=== PATIENT | male | born 2000 | race Caucasian/White ===

== ENCOUNTER 2021-12-10 12:46 | Day surgery (SDC) | payer OTHER ==
[~2021-12-10] VITALS: Ht 185.4 cm; Wt 93.0 kg
[2021-12-10] MEDS ORDERED: LR 1,000 ML IV SCH ×2 (13:25→17:35)
[2021-12-10] MEDS ORDERED: EPINEPHrine INJ 1 MG/ML 1ML AMP PN ONE (14:10)
[2021-12-10] MEDS ORDERED: dexameTHASONE 10MG/1ML VIAL PRES.FREE (J1100 PER 1MG) PN ONE (14:10)
[2021-12-10] MEDS ORDERED: LIDOCAINE 1% SDV 5ML VIAL PN ONE (14:10)
[2021-12-10] MEDS ORDERED: ROPIvacaine 0.5% 30ML INJECTION (J2795 PER 1MG) PN ONE (14:10)
[2021-12-10] MEDS ORDERED: fentaNYL 100 MCG/2 ML INJECTION IV PRN ×2 (14:10→17:35)
[2021-12-10] MEDS: MIDAZOLAM INJ 2MG/2ML VIAL (J2250 PER 1MG) IV PRN ×2 (14:20→14:24)
[2021-12-10] MEDS ORDERED: ONDANSETRON 4MG 2ML VIAL As Ordered ONE (14:43)
[2021-12-10] MEDS ORDERED: dexameTHASONE 4 MG/ML 1ML VIAL (J1100 PER 1MG) As Ordered ONE (14:43)
[2021-12-10] MEDS ORDERED: fentaNYL 100 MCG/2 ML INJECTION As Ordered ONE (14:43)
[2021-12-10] MEDS ORDERED: KETOROLAC 60MG 2ML VIAL As Ordered ONE (14:43)
[2021-12-10] MEDS ORDERED: propofoL 200 MG/20 ML VIAL As Ordered ONE (14:43)
[2021-12-10] MEDS ORDERED: EPINEPHrine 1MG/ML INJ 30ML MD-VIAL As Ordered ONE (15:06)
[2021-12-10] MEDS ORDERED: TRANEXAMIC ACID 100 MG/ML 10ML VIAL As Ordered ONE (15:29)
[2021-12-10] MEDS ORDERED: ceFAZolin 1GM VIAL (J0690 PER 500MG) As Ordered ONE (15:30)
[2021-12-10] MEDS ORDERED: METOCLOPRAMIDE INJ 10MG/2ML VIAL (J2765 PER 1) IV PRN (17:35)
[2021-12-10] MEDS ORDERED: oxyCODONE 5MG TAB PO PRN (17:35)
[2021-12-10] MEDS ORDERED: ONDANSETRON 4MG 2ML VIAL IV PRN (17:35)
[2021-12-10] MEDS ORDERED: MORPHINE 2 MG/ML 1ML VIAL IV PRN (17:35)
[2021-12-10 18:08] VITALS: BP 128/67
== END 2021-12-10 18:35 | disposition home or self-care (01) ==
LOC: M SDC 12:46
PROVIDERS: ATTEND Orthopaedic Surgery
DX: S83.212A Bucket-handle tear of medial meniscus, current injury, left knee, initial encounter (principal); X50.1XXA Overexertion from prolonged static or awkward postures, initial encounter; Z88.2 Allergy status to sulfonamides
CPT/HCPCS: 29882; C1713; J0171; J0690; J1100; J1885; J2250; J2405; J3010

== ENCOUNTER 2022-01-11 12:15 | Emergency (ER) | payer OTHER ==
[~2022-01-11] VITALS: Ht 185.4 cm; Wt 96.9 kg
[2022-01-11 12:15] VITALS: BP 143/85
[2022-01-11] MEDS ORDERED: NEUR100C PO (12:35)
[2022-01-11 15:26] LABS: BASO # 0.1 10^3/uL (0.0-0.2); BASO % 0.7 % (0.0-1.0); EOS # 0.4 10^3/uL (0.0-0.5); EOS % 4.1 % (0.0-3.0); HEMATOCRIT 46.5 % (42.0-52.0); HEMOGLOBIN 16.2 g/dl (13.5-17.5); LYMPH # 2.1 10^3/uL (1.5-5.0); LYMPH % 23.9 % (24.0-44.0); MEAN CORPUSCULAR HGB CONC 34.8 g/dl (32.0-36.5); MEAN CORPUSCULAR VOLUME 89.1 fl (80.0-96.0); MONO # 0.6 10^3/uL (0.0-0.8); MONO % 7.3 % (2.0-8.0); NEUTROPHILS # 5.6 10^3/uL (1.5-8.5); NEUTROPHILS % 63.8 % (36.0-66.0); PLATELET COUNT, AUTOMATED 254 10^3/uL (150-450); RED BLOOD COUNT 5.22 10^6/uL (4.30-6.10); WHITE BLOOD COUNT 8.7 10^3/uL (4.0-10.0)
[2022-01-11 16:00] LABS: ALBUMIN 4.3 GM/DL (3.2-5.2); ALT/SGPT 28 U/L (12-78); BILIRUBIN,DIRECT 0.2 MG/DL (0.0-0.2); BILIRUBIN,TOTAL 0.8 MG/DL (0.2-1.0); BLOOD UREA NITROGEN 11 MG/DL (7-18); CALCIUM LEVEL 9.3 MG/DL (8.5-10.1); CARBON DIOXIDE LEVEL 31 MEQ/L (21-32); CHLORIDE LEVEL 105 MEQ/L (98-107); CREATININE FOR GFR 1.11 MG/DL (0.70-1.30); GLUCOSE, FASTING 90 MG/DL (70-100); POTASSIUM SERUM 4.4 MEQ/L (3.5-5.1); SODIUM LEVEL 140 MEQ/L (136-145)
[2022-01-11 16:22] LABS: ERYTHROCYTE SEDIMENTATION RATE 2 mm/hr (0-15)
== END 2022-01-11 16:55 | disposition home or self-care (01) ==
LOC: M ED 12:15
DX: M25.562 Pain in left knee (principal); Z79.82 Long term (current) use of aspirin; Z88.1 Allergy status to other antibiotic agents; Z88.2 Allergy status to sulfonamides; F17.200 Nicotine dependence, unspecified, uncomplicated

== ENCOUNTER 2023-01-06 23:05 | Emergency (ER) | payer OTHER ==
[~2023-01-06] VITALS: Ht 185.4 cm; Wt 102.9 kg
[~2023-01-06 23:05] MED LIST: NEUR100C PO
[2023-01-06 23:51] LABS: HEMATOCRIT 48.3 % (42.0-52.0); HEMOGLOBIN 16.5 g/dl (13.5-17.5); MEAN CORPUSCULAR HEMOGLOBIN 31.2 pg (27.0-33.0); MEAN CORPUSCULAR HGB CONC 34.2 g/dl (32.0-36.5); MEAN CORPUSCULAR VOLUME 91.3 fl (80.0-96.0); PLATELET COUNT, AUTOMATED 286 10^3/uL (150-450); RED BLOOD COUNT 5.29 10^6/uL (4.30-6.10); WHITE BLOOD COUNT 8.1 10^3/uL (4.0-10.0)
[2023-01-07 00:14] LABS: AMPHETAMINES LEVEL URINE NEGATIVE (NEGATIVE); BARBITURATES URINE NEGATIVE (NEGATIVE); COCAINE METABOLITE URINE NEGATIVE (NEGATIVE)
[2023-01-07 00:15] LABS: BENZODIAZEPINES URINE NEGATIVE (NEGATIVE); CANNABINOIDS URINE NEGATIVE (NEGATIVE); METHADONE URINE NEGATIVE (NEGATIVE); OPIATES URINE NEGATIVE (NEGATIVE); PHENCYCLIDINE URINE NEGATIVE (NEGATIVE)
[2023-01-07 00:16] LABS: ETHYL ALCOHOL (ETHANOL) 0.136 % (0.000-0.010)
[2023-01-07 00:18] LABS: ACETAMINOPHEN LEVEL < 2.0 UG/ML (10.0-20.0); ALBUMIN 4.3 G/DL (3.2-5.2); ALKALINE PHOSPHATASE 68 U/L (46-116); ALT/SGPT 37 U/L (7.0-40); AST/SGOT 77 U/L (<34); BILIRUBIN,DIRECT 0.2 MG/DL (<0.4); BILIRUBIN,TOTAL 0.5 MG/DL (0.3-1.2); BLOOD UREA NITROGEN 10 MG/DL (9-23); CALCIUM LEVEL 9.5 MG/DL (8.5-10.1); CARBON DIOXIDE LEVEL 27 MMOL/L (20-31); CHLORIDE LEVEL 106 MMOL/L (98-107); CREATININE FOR GFR 1.21 MG/DL (0.70-1.30); GLOMERULAR FILTRATION RATE > 60.0 (>60); GLUCOSE, FASTING 89 MG/DL (60-100); POTASSIUM SERUM 3.9 MMOL/L (3.5-5.1); SALICYLATE LEVEL < 3.0 MG/DL (<30); SODIUM LEVEL 144 MMOL/L (136-145); TOTAL PROTEIN 7.8 G/DL (5.7-8.2)
[2023-01-07 00:20] LABS: THYROID STIMULATING HORMONE 2.261 uIU/ML (0.55-4.78)
[2023-01-07] MEDS ORDERED: HYDR-3363 PO (01:23)
[2023-01-07] MEDS ORDERED: HOME MED LIST COMPLETE! XX SCH (01:25)
[2023-01-07 07:31] VITALS: BP 153/86; TEMP 97.6; O2SAT 99
== END 2023-01-07 07:33 | disposition home or self-care (01) ==
LOC: M ED 23:05 → EDBD 23:05 → M ED 01-07 07:33
DX: F43.9 Reaction to severe stress, unspecified (principal); R45.88 Nonsuicidal self-harm; Z88.2 Allergy status to sulfonamides; Z79.899 Other long term (current) drug therapy